=== PATIENT | male | born 2000 | race African-American/Black ===

== ENCOUNTER 2020-03-16 22:27 | Emergency (ER) | payer SELFPAY ==
[~2020-03-16] VITALS: Ht 193 cm; Wt 95.3 kg
[2020-03-16 22:40] VITALS: BP 110/59
--- NOTE | 2020-03-16 22:40 | NUR ---
ED Nurse Note: pt walked into ED from home c/o congestion and CP for 1 month also c/o genital sores. Pt states he does not feel SOB, denies cough. Denies history of asthma. Pt is AAOx4, breathing even and unlabored. Follows directions cooperative with care. Vital signs stable
--- NOTE | 2020-03-16 22:50 | NUR ---
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
[2020-03-16] MEDS ORDERED: PSEUDOEPHEDRINE60 MG PO (23:01)
[2020-03-16] MEDS ORDERED: DOXYCYCLINE MO100 MG ORAL (23:01)
--- NOTE | 2020-03-16 23:04 | Emergency Room Report ---
History of Present Illness General Chief Complaint: Chest Pain Source: Patient Present Illness HPI 19-year-old male with no reported past medical history here with multiple complaints including chest congestion for 1 month as well as 10 days of dysuria. Patient is sexually active with multiple female partners and does not consistently use condoms. No penile discharge. Says that he noticed a small painless ulcer the dorsal part of his penile shaft 4 days ago. Denies fevers, chills, chest pain, palpitations, shortness of breath, cough, back pain, abdominal pain, nausea, vomiting, diarrhea. 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 Nursing Documentation-[facility] Past Medical History: No Stated History Review of Systems All Other Systems: negative except mentioned in HPI Physical Exam Vital Signs Date Time Temp Pulse Resp B/P (MAP) Pulse Ox O2 Delivery O2 Flow Rate FiO2 03/16/20 22:36 99.0 91 16 110/59 (76) 94 Room Air Sp02 EP Interpretation: reviewed, normal General Appearance: no apparent distress, alert, GCS 15, non-toxic Head: normocephalic, atraumatic Eyes: bilateral eye normal inspection, bilateral eye PERRL ENT: hearing grossly normal, normal pharynx, no angioedema, normal voice Neck: full range of motion, supple/symm/no masses Respiratory: chest non-tender, lungs clear, normal breath sounds, speaking full sentences Cardiovascular #1: regular rate, rhythm, no edema Cardiovascular #2: 2+ carotid (R), 2+ carotid (L), 2+ radial (R), 2+ radial (L), 2+ dorsalis pedis (R), 2+ dorsalis pedis (L) Gastrointestinal: normal bowel sounds, non tender, soft, non-distended, no guarding, no rebound Rectal: deferred Genitourinary: normal inspection, no CVA tenderness, other - Small painless ulcer on the dorsal aspect of the penile shaft. No active drainage Musculoskeletal: back normal, normal range of motion, gait/station normal, non- tender Neurologic: alert, motor strength/tone normal, oriented x3, sensory intact, responsive, speech normal Psychiatric: judgement/insight normal, memory normal, mood/affect normal, no suicidal/homicidal ideation Lymphatic: no adenopathy Medical Decision Making Diagnostic Impression: Primary Impression: Chest congestion Additional Impressions: Penile ulcer Urethritis ER Course EKG: NSR, no ischemia, intervals WNL. No ectopy. 71 bpm Rhythm strip: patient monitored for arrhythmias - no malignant dysrhythmias, runs of PVCs, nor pauses noted CXR: No infiltrate/effusion. Mediastinum within normal limits. No consolidations. No free air under the diaphragm. No bony abnormalities 19-year-old sexually active male here with penile ulcer and dysuria. Patient has small ulcer on the dorsal aspect of his penile shaft. He was also complaining of dysuria. He was given 250 mg of Rocephin intramuscularly. Given a prescription for 7 days of doxycycline. Chest x-ray and EKG were unremarkable. Patient was told to return with worsening symptoms. He will follow-up with primary care. Discharged in stable condition. Last Vital Signs Date Time Temp Pulse Resp B/P (MAP) Pulse Ox O2 Delivery O2 Flow Rate FiO2 03/16/20 22:40 70 16 Room Air 03/16/20 22:40 99.0 110/59 94 Disposition: HOME, SELF-CARE Scripts Pseudoephedrine Hcl* (SUDAFED*) 60 Mg Tablet 60 MG PO Q6H for 5 Days, TAB Prov: Toro Mehta M.D. 03/16/20 Doxycycline Monohydrate* (DOXYCYCLINE MONOHYDRATE*) 100 Mg Capsule 100 MG ORAL Q12H, #14 CAP 0 Refills Prov: Toro Mehta M.D. 03/16/20 Referrals: [facility] Swenson [facility]. [facility] [place] *Patients are seen by appointment only* [facility] Patient Instructions: Safe Sex Toro Mehta M.D. Mar 16, 2020 23:04
[2020-03-16] MEDS: Lidocaine 1% MPF 10mg/ml 5ml INJ ONE (23:05)
[2020-03-16 23:15] VITALS: BP 125/78
--- NOTE | 2020-03-16 23:15 | NUR ---
ER DISCHARGE NOTE: Patient is cleared to be discharged per ERMD, pt is aox4, on room air, with stable vital signs. pt was given dc and paper prescription with instructions to f/u with PMD, pt was able to verbalize understanding, pt id band removed. pt is able to ambulate with steady gait. pt took all belongings.
--- NOTE | 2020-03-17 09:29 | Diagnostic Imaging Report ---
EXAM: XR Chest, 1 View CLINICAL HISTORY: CP TECHNIQUE: Frontal view of the chest. COMPARISON: No relevant prior studies available. FINDINGS: Lungs: Unremarkable. No consolidation. Pleural space: Unremarkable. No pneumothorax. Heart: Unremarkable. No cardiomegaly. Mediastinum: Unremarkable. Bones/joints: Unremarkable. IMPRESSION: No focal infiltrate.
== END 2020-03-16 23:15 | disposition home or self-care (01) ==
LOC: EMR 22:35
DX: R09.89 Other specified symptoms and signs involving the circulatory and respiratory systems (principal); N48.5 Ulcer of penis; N34.2 Other urethritis
CPT/HCPCS: 71045; 93005; 96372; 99283; J0696